=== PATIENT | female | born 1975 | race Caucasian/White ===

== ENCOUNTER 2023-05-22 09:29 | Outpatient (CLI) | payer BC, SELFPAY | END 2023-05-22 09:30 | disposition home or self-care (01) | PROVIDERS: PCP Family Medicine; Visit Provider Family Medicine | DX: Z00.00 Encounter for general adult medical examination without abnormal findings (principal); E04.1 Nontoxic single thyroid nodule; Z13.6 Encounter for screening for cardiovascular disorders; Z11.59 Encounter for screening for other viral diseases; Z83.3 Family history of diabetes mellitus | CPT/HCPCS: 80053; 80061; 84443; 86803 ==

== ENCOUNTER 2023-06-05 11:28 | Outpatient (CLI) | payer BC, SELFPAY ==
--- NOTE | 2023-06-05 12:54 | W.ANESCHARGE ---
Anesthesia Charges Start Date/Time Anesthesia Start Date: 06/05/23 Anesthesia Start Time: 12:21 Stop Date/Time Anesthesia Stop Date: 06/05/23 Anesthesia Stop Time: 12:51
== END 2023-06-05 11:29 | disposition home or self-care (01) ==
LOC: OP CLINIC 11:28
PROVIDERS: PCP Family Medicine; Visit Provider Surgery
DX: Z12.11 Encounter for screening for malignant neoplasm of colon (principal)
CPT/HCPCS: 00812; 45378; J2704

== ENCOUNTER 2023-07-13 07:46 | Outpatient (CLI) | payer BC, SELFPAY | END 2023-07-13 07:47 | disposition home or self-care (01) | LOC: RAD 07:46 | PROVIDERS: PCP Family Medicine; Visit Provider Family Medicine | DX: Z82.49 Family history of ischemic heart disease and other diseases of the circulatory system (principal) | CPT/HCPCS: 93306 ==

== ENCOUNTER 2023-08-28 14:54 | Outpatient (CLI) | payer BC, SELFPAY ==
--- NOTE | 2023-08-28 15:00 | CRLHL7_ITS ---
For Patients: As a result of the Century Cures Act, medical imaging exams and procedure reports are released immediately into your electronic medical record. You may view this report before your referring provider. If you have questions, please contact your health care provider. BILATERAL SCREENING MAMMOGRAM WITH COMPUTER-AIDED DETECTION AND TOMOSYNTHESIS TECHNIQUE: CC and MLO views were obtained. These mammographic images have been obtained using full-field digital technique. These mammographic images were interpreted with the benefit of computer-aided detection. Breast Tomosynthesis was used in this interpretation. COMPARISON FILM: 08/28/19. FINDINGS: There are scattered areas of fibroglandular density. IMPRESSION: There is no radiographic evidence for malignancy. ASSESSMENT: BI-RADS Category 2: Benign RECOMMENDATION: Routine screening mammogram in 1 year. A lay language report of this examination will be provided to the patient. Roni Fitzgerald M.D. Diagnostic Radiologist [email or web address] SP/Dictated by: Roni Fitzgerald MD @ 09/04/2023 11:32:00 AM (Electronically Signed)
== END 2023-08-28 14:55 | disposition home or self-care (01) ==
LOC: MAMMO 14:57
PROVIDERS: PCP Family Medicine; Visit Provider Family Medicine
DX: Z12.31 Encounter for screening mammogram for malignant neoplasm of breast (principal)
CPT/HCPCS: 77063; 77067